=== PATIENT | female | born 1945 | race Caucasian/White ===

== ENCOUNTER 2021-08-04 16:07 | Outpatient (CLI) | payer MEDICARE, SELFPAY ==
--- NOTE | ~2021-08-04 | MM_ITS ---
EXAMINATION: MM screening viola BI w daniella HISTORY: Screening TECHNIQUE: Craniocaudal and mediolateral oblique 3-D tomosynthesis images were obtained and synthetic 2-D images were generated. CAD analysis was submitted and interpreted. COMPARISON: Comparison to multiple prior studies sequentially, with oldest reviewed study dated . BREAST PARENCHYMAL COMPOSITION: There are scattered areas of fibroglandular density. FINDINGS: There is developing cluster of indeterminate calcifications in the upper outer quadrant of the right breast, middle third. There is a possible new area of architectural distortion in the outer aspect of the left breast with associated punctate calcifications which are new. IMPRESSION: 1. New area of architectural distortion upper outer quadrant of the left breast with associated calci fications. Developing clustered indeterminate right breast calcifications. 2. Additional mammographic views and possible breast ultrasound are recommended. BI-RADS Category 0: Incomplete: Needs additional imaging evaluation. Reviewed, dictated and finalized at location A. IMPRESSION: 1. New area of architectural distortion upper outer quadrant of the left breast with associated calcifications. Developing clustered indeterminate right breas t calcifications. 2. Additional mammographic views and possible breast ultrasound are recommended . BI-RADS Category 0: Incomplete: Needs additional imaging evaluation.
== END 2021-08-04 16:08 | disposition home or self-care (01) ==
LOC: ANHIMG 16:09
PROVIDERS: PCP Internal Medicine; Visit Provider Internal Medicine
DX: Z12.31 Encounter for screening mammogram for malignant neoplasm of breast (principal); R92.8 Other abnormal and inconclusive findings on diagnostic imaging of breast
CPT/HCPCS: 77063; 77067

== ENCOUNTER 2021-08-22 12:45 | Outpatient (CLI) | payer MEDICARE, SELFPAY ==
--- NOTE | ~2021-08-22 | MMUS_ITS ---
EXAMINATION: MM diagnostic mammo BI, US breast LT limited HISTORY: Possible new architectural distortion in upper outer left breast with associated calcificati ons, developing clustered indeterminate right breast calcifications on 08/04/2021 screening mammogram TECHNIQUE: Additional ML 3-D tomosynthesis images of both breasts were performed and synthetic 2-D im ages were generated. Bilateral magnification views. CAD analysis was submitted and interpreted. High resolution upper outer and lower outer left breast ultrasound was performed. COMPARISON: 08/04/2021 bilateral digital screening mammogram FINDINGS: MAMMOGRAPHIC FINDINGS: There are multiple bilateral benign calcifications bilaterally. On the left in the anterior upper outer breast not far from midline there is suggestion of architectu ral distortion and some subtle mildly pleomorphic microcalcifications. ULTRASOUND: No suspicious mass or shadowing is detected in the upper outer or lower outer left breast. IMPRESSION: 1. Suspicious architectural distortion and associated mildly pleomorphic microcalcifications in the a nterior aspect of the upper outer left breast not far from midline 2. Stereotactic biopsy is recommended BI-RADS category 4, suspicious findings. Dr. Thurman telephoned the report and stereotactic biopsy recommendation for left breast on 08/22/2021 a t [address] Wills. Reviewed, dictated and finalized at location A. IMPRESSION: 1. Suspicious architectural distortion and associated mildly pleomorphic microc alcifications in the anterior aspect of the upper outer left breast not far fro m midline 2. Stereotactic biopsy is recommended BI-RADS category 4, suspicious findings. Dr. Thurman telephoned the report and stereotactic biopsy recommendation for left breast on 08/22/2021 [address] Wills.
== END 2021-08-22 12:46 | disposition home or self-care (01) ==
LOC: ANHIMG 12:51
PROVIDERS: PCP Internal Medicine; Visit Provider Internal Medicine
DX: R92.8 Other abnormal and inconclusive findings on diagnostic imaging of breast (principal)
CPT/HCPCS: 76642; 77066

== ENCOUNTER 2021-08-25 10:01 | Outpatient (CLI) | payer MEDICARE, SELFPAY ==
--- NOTE | ~2021-08-25 | MM_ITS ---
EXAMINATION: MM stereotactic bx LT, MM post biopsy diagnostic LT, MM stereotactic specimen LT, Specim en Radiograph, Tissue Marker Clip Placement, Unilateral Mammogram DATE: 08/25/2021 12:10 (accession [id number]), 08/25/2021 12:11 (accession [id number]), 08/25 12:10 (accession [id number]) INDICATION: Abnormal mammogram: Suspicious architectural distortion associated mildly pleomorphic lesa rocalcifications in the anterior upper outer left breast. TECHNIQUE AND FINDINGS: The risks and potential benefits of the procedure were discussed with the patient and written informe d consent was obtained. Timeout procedure was performed. The patient was placed in the prone position on the dedicated stereotactic table with the left breast in lateral medial compression, and the area of interest was localized and targeted utilizing digital imaging with stereotaxis. After sterile preparation of the skin, 1% lidocaine was utilized for local anesthesia at the skin pun cture site and 1% lidocaine with epinephrine was utilized for deeper local anesthesia/is about the bi opsy site. A 9G [employer] vacuum assisted biopsy needle was advanced to the level of the calcification o f interest from a cephalad/caudal/medial/lateral approach utilizing stereotactic guidance and a total of 25 tissue core biopsies were obtained. A specimen radiograph demonstrates that the calcifications of interest are included within the tissue cores. A tissue marker clip was then placed at the biopsy site. A digital mammographic exposure co nfirmed the successful deployment of the biopsy marker. The needle was removed and hemostasis was ac hieved. A sterile bandage was applied. The patient tolerated the procedure well and there is no hanna dence of significant immediate complication. The patient was given verbal as well as written postpro cedural instructions prior to discharge from the department. Tissue cores were submitted to surgical pathology for histologic analysis. A 2-view left unilateral digital mammogram was obtained post procedure, demonstrating the tissue sarbjit er clip in expected position. IMPRESSION: 1. Successful stereotactic biopsy of left anterior upper outer quadrant microcalcifications, follow ed by tissue marker clip placement. Please refer to pathology report for histologic analysis. Reviewed, dictated and finalized at Location A. Reviewed, dictated and finalized at location A. IMPRESSION: 1. Successful stereotactic biopsy of left anterior upper outer quadrant micro calcifications, followed by tissue marker clip placement. Please refer to path ology report for histologic analysis. IMPRESSION: 1. Successful stereotactic biopsy of left anterior upper outer quadrant micro calcifications, followed by tissue marker clip placement. Please refer to path ology report for histologic analysis.
== END 2021-08-25 10:02 | disposition home or self-care (01) ==
PROVIDERS: PCP Internal Medicine; Visit Provider Internal Medicine
DX: D05.12 Intraductal carcinoma in situ of left breast (principal)
CPT/HCPCS: 19081; 77065; 88305; 88342; A4648

== ENCOUNTER 2021-09-05 08:26 | Outpatient (CLI) | payer MEDICARE, SELFPAY ==
--- NOTE | 2021-09-05 08:30 | ECG_ITS ---
Measurements Intervals [place] Rate: 69 P: 13 SC: 154 QRS: 0 QRSD: 82 T: 19 QT: 369 QTc: 396 Interpretive Statements SINUS RHYTHM BORDERLINE R WAVE PROGRESSION, ANTERIOR LEADS BORDERLINE ST ABNORMALITY- HIGH LATERAL LEADS BASELINE ARTIFACT- I, III, AVR, AVL, AVF BORDERLINE ECG Electronically Signed On 09-05-2021 9:31:55 CDT by Carlos Bonilla D.O.
== END 2021-09-05 08:27 | disposition home or self-care (01) ==
LOC: ANHSURGERY 08:31
PROVIDERS: PCP Internal Medicine; Visit Provider Surgery
DX: Z01.810 Encounter for preprocedural cardiovascular examination (principal); I10 Essential (primary) hypertension
CPT/HCPCS: 93005

== ENCOUNTER 2021-10-24 01:40 | Day surgery (SDC) | payer MEDICARE, SELFPAY ==
[2021-09-02 13:32] VITALS: BMI 37.3
[2021-10-18 15:23] VITALS: BMI 37.3
--- NOTE | 2021-10-18 15:38 | PC.NURSE ---
Report to the Outpatient Waiting Room, entrance under the green pavilion located off [facility], at time _1030 on date _10/24/21 . OR Time: ___1330 . NEEDLE LOC-1130 - You and your visitor will be asked a series of questions to screen for COVID 19 for your protection. - A mask is required within the hospital. - Only one visitor is allowed at this time. Patient visitors will be guided where to wait when not with patient. Preoperative COVID Testing Requirements: No COVID Test needed if: (proof is required; if not received patient will have Rapid Test prior to entry) - Patient has received COVID Vaccine at least 14 days prior to procedure date or - Patient has positive COVID test result within last 90 days of surgery date. COVID Test needed if above criteria is not met If not COVID vaccinated a COVID test must be conducted within 72 hours of surgery and patient is asked to isolate self from time of testing until procedure. You will go to the [employer] [facility] for your COVID testing. The [employer] [facility] site is located at the corner of [address] [facility]. You will only be called if COVID results are positive and your surgeon may reschedule your elective surgery date. Patients may have clear liquids (water, carbonated beverages, clear teas, apple juice) until 3 hours prior to surgery with a maximum of 20 ounces. - No food from midnight until time of surgery - Infants may have breast milk until 4 hours before surgery, formula 6 hours prior to surgery. - Children will be allowed to drink immediately following surgery. If applicable, please bring a bottle or sippy cup to assist with drinking. Juice, water, soda, and popsicles are readily available. For infants on formula, please bring formula the day of surgery. Pacifiers are allowed. Take the following medications with a SIP of water the morning of surgery: _ALPRAZOLAM PRN, CARVEDILOL, LEVOTHYROXINE Medications to discontinue per physician STATES ONCOLOGIST INSTR PT TO HOLD ANASTROZOLE A FEW DAYS PRE-OP Date to take last dose Please no make-up, nail kittitian, hairspray, perfume, deodorant, or body powder the day of surgery. No jewelry (including any body piercings) or valuables the day of surgery, leave them at home. Please take a shower or bath the night before, or the morning of, surgery with an antibacterial soap. Wear comfortable, loose fitting clothing. Children are encouraged to wear pajamas. HIBICLENS SHOWER AMM OF SURGERY - Jewelry must be removed prior to entering the operating room. Rings and piercings that are not removed may be cut off. - The hospital will not accept responsibility for valuables. - Please leave all valuables, including medications, at home the day of surgery. If you are going home after surgery, a licensed pizza driver must drive you home. - NO public transportation without another adult. - We recommend that an adult stay with you for 24 hours following discharge. - We also recommend that you do not drive, make important decision, drink alcoholic beverages, or take any drugs that were not prescribed by your health care provider for at least 24 hours after your discharge time. For Pediatric surgeries, we recommend two adults accompany the child home (only one inside the building at this time). Follow any additional instructions given to you from your surgeon. Telephone instructions given to __PATIENT and asked if any additional questions and then verbalized understanding. Patient advised to call surgeon office or pre surgery nurse liaison [phone] if any additional questions.
[2021-10-24] VITALS (8 sets, daily range): BP systolic 105–152; BP diastolic 61–79; PULSE 56–72; RESP 12–16; TEMP 36.3; O2SAT 94–100
--- NOTE | ~2021-10-24 | MM_ITS ---
EXAMINATION: MM needle loc LT, MM surgical specimen LT DATE: 10/24/2021 12:49 (accession [id number]), 10/24/2021 14:31 (accession [id number]) INDICATION: Ductal carcinoma in situ of the left breast TECHNIQUE: The procedure for a mammography-guided needle localization was discussed with the patient. Risks and benefits were detailed including risks of bleeding and infection. The patient verbalized u nderstanding and agreed to proceed. A time out was performed to verify the patient's name, date of , and site of procedure. The bola ent was placed in mediolateral compression, and the skin overlying the outer left breast was prepare d in usual fashion. The skin and subcutaneous soft tissues were infiltrated with 1% lidocaine for loc al anesthesia. Utilizing mammography guidance, a needle was advanced into the left breast. Two confir matory films were obtained. The patient tolerated procedure without immediate complication. A specimen radiograph was performed. FINDINGS: Two view confirmatory films of the left breast demonstrate a needle with tip adjacent to th e biopsy marker in the upper outer quadrant of the breast. The wire and biopsy marker are contained w ithin the surgical specimen. IMPRESSION: 1. Successful mammography-guided left breast breast needle localization. Reviewed, dictated and finalized at location A. RESIDENTIAL IMPRESSION: 1. Successful mammography-guided left breast breast needle localization.
--- NOTE | ~2021-10-24 | NM_ITS ---
EXAMINATION: NM sentinel node inject only INDICATION: Left breast cancer TECHNIQUE: 0.968 mCi Tc 99m Lymphoseek were injected in 4 aliquots in the upper outer quadrant of the breast near the areola. No images were obtained. IMPRESSION: 1. Status post left breast sentinel lymph node radiopharmaceutical injection. Please refer to procedu re note for full details. Reviewed, dictated and finalized at location A. 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 Status post left breast sentinel lymph node radiopharmaceutical injection. P lease refer to procedure note for full details.
--- NOTE | 2021-10-24 10:59 | WPDANESEPPF ---
Anes - Initial Pre Proc Eval Procedure: Operation Date: 10/24/21 13:30 Proposed Procedures p Left Breast Lumpectomy with Ultrasound and/or Mammogram Guided Needle Localization, - Dino Avila DO s Left Breast [place] Lymph Node Biopsy - Dino Avila DO Date/Time: 10/24/21 10:59 Surgeon: Dino Avila DO Pre Op Diagnosis: left breast dcis Patient Data Age: 76 Gender: F Height: 1.68 m Weight: 105 kg Allergies Allergy/AdvReac Type Severity Reaction Status Date / Time No Known Allergies Allergy Verified 10/24/21 10:59 Home Medications Medication Instructions Recorded Confirmed Type levothyroxine 125 mcg PO QAM 09/02/21 10/24/21 History alprazolam 0.25 mg tablet 0.25 mg PO BID PRN #30 tablet 09/08/21 10/24/21 Rx carvedilol 25 mg tablet 25 mg PO BID #180 tablet 10/14/21 10/24/21 Rx felodipine 5 mg tablet,extended 5 mg PO HS #90 tablet 10/14/21 10/24/21 Rx release 24 hr lisinopril 40 mg tablet 40 mg PO QAM #90 tablet 10/14/21 10/24/21 Rx anastrozole 1 mg PO DAILY 10/18/21 10/24/21 History Patient hx anesthesia problems: none Family hx anesthesia problems: none Results Review: All pre-operative results and documents have been reviewed as part of the pre-operative evaluation. FORMERLY [facility], [facility]1983 Past Medical History Medical History (Updated 10/24/21 @ 10:59 by Enrique Sims MD) Anxiety BMI 37.0-37.9, adult Ductal carcinoma in situ (DCIS) of left breast Essential (primary) hypertension Hx of thyroid cancer Hyperlipidemia Hypothyroidism Surgical History Surgical History History of breast biopsy left breast bx 19 years ago, right breast bx x2 10 years ago. History of D&C History of hysterectomy History of thyroidectomy History of tonsillectomy Family History Family History Mother , age 77 Non-Hodgkin lymphoma Father , age 64 Pancreatic cancer Grandparent Breast cancer Social History Social History (Reviewed 09/06/21 @ 08:22 by YONI Etienne Smoking status: Never smoker Second hand tobacco smoke exposure: No Alcohol intake: current Drinks per week: 28 Alcohol use details: Wine Substance use: never Living arrangements: alone Spiritual care concerns: No Anes - Eval Final PreProcedure Day of Procedure 10/24/21 10:59 Patient weight: obese Heart: regular rate and rhythm Lungs: clear to auscultation and normal air movement Airway: Mallampati scale class II Neurological: alert and oriented Last oral intake: >/= 8 hours ASA classification: III Emergent: no Anesthetic plan: proceed Anesthesia type and monitoring: general LMA Results Review: All pre-operative results and documents have been reviewed as part of the pre-operative evaluation. Informed Consent: The patient's anesthetic plan and its attendant risks and benefits were discussed with the patient/family/POA. Questions were solicited and answers provided to the satisfaction of the patient/family/POA.
[2021-10-24] MEDS: ACETAMINOPHEN 500 MG TABLET 1000 MG PO (11:18)
[2021-10-24] MEDS: KETOROLAC 15 MG/ML VIAL (*BKC) IV PUSH (11:19)
[2021-10-24] MEDS: LACTATED RINGERS 1,000 ML 30 ML IV CONT (11:20)
--- NOTE | 2021-10-24 13:13 | PM.IMHP ---
H&P: HPI History of Present Illness Date/Time: 10/24/21 13:13 Chief Complaint: Left breast DCIS Narrative: This is a 76-year-old woman who presents for lumpectomy with sentinel lymph node biopsy for left breast DCIS. She reports no changes since last seen in the office. Review of Systems Review of Systems: All systems reviewed & are unremarkable except as noted in HPI and below Constitutional: Constitutional: Denies chills, Denies fever(s), Denies headache(s) and Denies weight loss Eyes: Eyes: Denies change in vision ENT: Denies dizziness, Denies headache(s), Denies neck mass and Denies throat swelling Cardiovascular: Cardiovascular: Denies chest pain, Denies lightheadedness and Denies dyspnea Respiratory: Respiratory: Denies cough, Denies dyspnea and Denies wheezing Gastrointestinal: Gastrointestinal: Denies abdominal pain, Denies change in bowel habits, Denies nausea and Denies vomiting Genitourinary: Genitourinary: Denies hematuria and Denies dysuria Musculoskeletal: Musculoskeletal: Reports as per HPI Integumentary/Breasts: Skin/Breast: Reports as per HPI Neurologic: Denies dizziness and Denies headache(s) Allergic/Immunologic: Allergic/Immunologic: Denies throat swelling and Denies wheezing PMFSH Past Medical History Medical History (Updated 10/24/21 @ 10:59 by Enrique Sims MD) Anxiety BMI 37.0-37.9, adult Ductal carcinoma in situ (DCIS) of left breast Essential (primary) hypertension Hx of thyroid cancer Hyperlipidemia Hypothyroidism Surgical History Surgical History History of breast biopsy left breast bx 19 years ago, right breast bx x2 10 years ago. History of D&C History of hysterectomy History of thyroidectomy History of tonsillectomy Family History Family History Mother , age 77 Non-Hodgkin lymphoma Father , age 64 Pancreatic cancer Grandparent Breast cancer Social History Social History Smoking status: Never smoker Second hand tobacco smoke exposure: No Alcohol intake: current Drinks per week: 28 Alcohol use details: Wine Substance use: never Living arrangements: alone Spiritual care concerns: No Meds Home Medications and Allergies Home Medications Medication Instructions Recorded Confirmed Type levothyroxine 125 mcg PO QAM 09/02/21 10/24/21 History alprazolam 0.25 mg tablet 0.25 mg PO BID PRN #30 tablet 09/08/21 10/24/21 Rx carvedilol 25 mg tablet 25 mg PO BID #180 tablet 10/14/21 10/24/21 Rx felodipine 5 mg tablet,extended 5 mg PO HS #90 tablet 10/14/21 10/24/21 Rx release 24 hr lisinopril 40 mg tablet 40 mg PO QAM #90 tablet 10/14/21 10/24/21 Rx anastrozole 1 mg PO DAILY 10/18/21 10/24/21 History Allergies Allergy/AdvReac Type Severity Reaction Status Date / Time No Known Allergies Allergy Verified 10/24/21 10:59 Vital Signs Vital Signs - 24 hr 10/24/21 10:40 Temperature 36.3 C L Pulse Rate 72 Respiratory Rate 16 Blood Pressure 148/79 H Pulse Oximetry 100 Exam Const: General: no acute distress and alert Orientation/consciousness: patient oriented x3 HENMT: Head: normocephalic and atraumatic Ears: hearing grossly normal bilaterally General nose exam: Normal nares present Mouth: Yes Normal oral and palatal mucosa present Eyes: Periorbital: periorbital findings normal Sclera: sclerae normal EOM: EOMs intact bilaterally Neck: Neck: normal visual inspection, no lymphadenopathy and trachea midline Chest: Chest palpation & inspection: normal inspection of the chest Resp: Effort & Inspection: normal respiratory effort Auscultation: clear to auscultation bilaterally Cardio: Jugular venous distension: no JVD Rate: regular rate Rhythm: regular rhythm Heart sounds: S1 normal heart sound present and S2 normal heart sound pre
--- NOTE | 2021-10-24 13:15 | WPDHPUPDATE1 ---
History and Physical Update Update Date/Time: 10/24/21 13:15 History and Physical has been reviewed, including an updated exam of the patient. There are NO changes in the patient's condition. Risks, benefits, and alternatives have been discussed and questions answered. Patient agrees to proceed with procedure.
[2021-10-24] MEDS: ceFAZolin 2 GM/D5W 50 ML 2 GM/50 ML BAG IVPB (13:39)
[2021-10-24] MEDS: ISOSULFAN BLUE 1% INJ 5 ML VIAL SUB-Q (13:49)
--- NOTE | 2021-10-24 15:03 | W.PM.PROC2 ---
Procedure Note - Detailed Date of Procedure 10/24/21 Pre-op Diagnosis Left breast DCIS Post-op Diagnosis same Procedure Performed Left breast needle localized lumpectomy with sentinel lymph node biopsy Surgeon Dino Avila, DO Anesthesia general and local (0.5% bupivacaine) Indications This is a 76-year-old woman who presented with an abnormal mammogram showing microcalcifications. A core needle biopsy showed evidence of DCIS with comedonecrosis. Discussions were made with the patient about treatment options and decision was made to proceed with left breast lumpectomy with needle localization and sentinel lymph node biopsy Findings Left breast lumpectomy was performed. Careful dissection around the wire was performed to obtain an adequate specimen for pathology. The specimen was sent to Radiology and they confirmed the abnormal microcalcifications were present in the specimen. [place] lymph node biopsy was then also performed. The sentinel lymph node identified showed an uptake of 2200 with the gamma probe. After carefully inspecting the axilla for any further lymph nodes, no other area within the axillary bed was showing a higher uptake then about 90-110. The single sentinel lymph node was sent to the lab for pathology. Description of Procedure Procedure as well as risks, benefits, and alternatives were discussed with the patient. Written consent was obtained and placed in chart prior to procedure. Patient was brought back to surgical suite. She was placed supine on operating table. Time-out was done to confirm patient and procedure. She was then intubated by the anesthesia department. Her nipple and areola skin was prepped with alcohol and 4 cc of isosulfan blue was injected at the 4 corners. Her breast and axillary region was then prepped and draped in sterile fashion using chlorhexidine prep. The wire was coming out of the skin in the upper outer quadrant of the left breast. 0.5% bupivacaine was infiltrated locally around this area and a 4 cm curvilinear incision was made using a 15 blade scalpel directly over this area. Electrocautery was used for hemostasis and for dissection around the wire and into the breast tissue. About a 3 cm x 3 cm section of the tissue was carefully dissected around the wire using electrocautery. Care was taken to stay far enough around the wire to get an adequate specimen. Once the specimen was completely removed it was marked with a short silk suture superiorly and long suture laterally. It was then sent to Radiology to confirm the specimen and then sent to the lab for pathology. The wound bed was then inspected hemostasis appeared adequate. The wound bed was then irrigated with sterile water. No other masses or abnormalities were noted. The deep tissue was then reapproximated using 3-0 Vicryl simple interrupted sutures and then the skin was approximated using 4-0 Monocryl running subcuticular suture. Exofin glue was then applied on top. I then moved my attention over to left axilla. The gamma probe was used to identify the area of increased uptake in the left axilla. 0.5% bupivacaine was infiltrated directly over this region and a 3 cm transverse incision was made directly over the area of increased uptake. Electrocautery was then used for hemostasis and for dissection through the clavipectoral fascia. A deep level 1 axillary node was identified with the blue dye and this was confirmed with increase uptake with the gamma probe. The lymph node was carefully dissected free with electrocautery and was excised completely with electrocautery. The gamma probe confirmed an increase uptake at 2200. This was sent as the initial sentinel lymph node. The wound bed was then inspected further with the gamma probe. No further increased uptake was noted above her around 90-110. I carefully inspected for any other blue lymph nodes with careful blunt dissection with a hemostat. No other sentinel lymph nodes were identi
== END 2021-10-24 17:15 | disposition home or self-care (01) ==
PROVIDERS: PCP Internal Medicine; Visit Provider Surgery
PROC: (CPT 19301; principal; 2021-10-24 13:30)
PROC: (CPT 19301; 2021-10-24 13:30)
DX: D05.12 Intraductal carcinoma in situ of left breast (principal); I10 Essential (primary) hypertension; E78.5 Hyperlipidemia, unspecified; E89.0 Postprocedural hypothyroidism; F41.9 Anxiety disorder, unspecified; Z85.850 Personal history of malignant neoplasm of thyroid; E66.9 Obesity, unspecified; Z68.36 Body mass index [BMI] 36.0-36.9, adult
CPT/HCPCS: 19301; 38525; 19281; 38792; 76098; 88307; 88342; A9270; A9520; C1769; J0690; J1100; J1885; J2250; J2405; J2704; J3010; J7120

== ENCOUNTER 2021-11-08 01:53 | Day surgery (SDC) | payer MEDICARE, SELFPAY ==
[2021-11-03 12:42] VITALS: BMI 36.6
--- NOTE | 2021-11-03 12:47 | PC.NURSE ---
Report to the Outpatient Waiting Room, entrance under the green pavilion located off [facility], at time _1200__ on date _11/08/21_. OR Time: _1400___. - You and your visitor will be asked a series of questions to screen for COVID 19 for your protection. - A mask is required within the hospital. - NO visitors is allowed at this time. Patient visitors will be guided where to wait when not with patient. Preoperative COVID Testing Requirements: No COVID Test needed if: (proof is required; if not received patient will have Rapid Test prior to entry) - Patient has received COVID Vaccine at least 14 days prior to procedure date or - Patient has positive COVID test result within last 90 days of surgery date. COVID Test needed if above criteria is not met If not COVID vaccinated a COVID test must be conducted within 72 hours of surgery and patient is asked to isolate self from time of testing until procedure. You will go to the [facility] for your COVID testing. The [facility] Testing site is located at the corner of [address] [facility]. You will only be called if COVID results are positive and your surgeon may reschedule your elective surgery date. Patients may have clear liquids (water, carbonated beverages, clear teas, apple juice) until 3 hours prior to surgery with a maximum of 20 ounces. - No food from midnight until time of surgery (1100 AM) - Infants may have breast milk until 4 hours before surgery, infant formula 6 hours prior to surgery. - Children will be allowed to drink immediately following surgery. If applicable, please bring a bottle or sippy cup to assist with drinking. Juice, water, soda, and popsicles are readily available. For infants on formula, please bring formula the day of surgery. Pacifiers are allowed. Take the following medications with a SIP of water the morning of surgery: _ALPRAZOLAM, CARVEDILOL, FELODIPINE, LEVOTHYROXINE___ Medications to discontinue per physician N/A Date to take last dose Please no make-up, nail german, hairspray, perfume, deodorant, or body powder the day of surgery. No jewelry (including any body piercings) or valuables the day of surgery, leave them at home. Please take a shower or bath the night before, or the morning of, surgery with an antibacterial soap. Wear comfortable, loose fitting clothing. Children are encouraged to wear pajamas. - Jewelry must be removed prior to entering the operating room. Rings and piercings that are not removed may be cut off. - The hospital will not accept responsibility for valuables. - Please leave all valuables, including medications, at home the day of surgery. If you are going home after surgery, a licensed dedicated truck driver must drive you home. - NO public transportation without another adult. - We recommend that an adult stay with you for 24 hours following discharge. - We also recommend that you do not drive, make important decision, drink alcoholic beverages, or take any drugs that were not prescribed by your health care provider for at least 24 hours after your discharge time. For Pediatric surgeries, we recommend two adults accompany the child home (only one inside the building at this time). Follow any additional instructions given to you from your surgeon. [facility] AM OF SURGERY Telephone instructions given to ____PT and asked if any additional questions and then verbalized understanding. Patient advised to call surgeon office or pre surgery nurse liaison [phone] if any additional questions.
[2021-11-08] VITALS (9 sets, daily range): BP systolic 124–145; BP diastolic 61–81; PULSE 65–72; RESP 14–18; TEMP 36.2–36.6; O2SAT 95–100
[2021-11-08] MEDS: KETOROLAC 15 MG/ML VIAL (*BKC) IV PUSH (09:09)
[2021-11-08] MEDS: ACETAMINOPHEN 500 MG TABLET 1000 MG PO (09:09)
--- NOTE | 2021-11-08 09:16 | P.PNAN_ITS ---
Anes - Initial Pre Proc Eval Procedure: Operation Date: 11/08/21 10:00 Proposed Procedures p Re-excision Of Left Breast Ductal Carcinoma In Situ - Dino Avila DO Date/Time: 11/08/21 09:16 Surgeon: Dino Avila DO Pre Op Diagnosis: ductal carcinoma in situ Patient Data Age: 76 Gender: F Height: 1.68 m Weight: 102.7 kg Last Vital Signs Temp 36.6 C 11/08/21 08:49 Pulse 72 11/08/21 08:49 Resp 16 11/08/21 08:49 BP 139/66 11/08/21 08:49 Pulse Ox 100 11/08/21 08:49 Allergies Allergy/AdvReac Type Severity Reaction Status Date / Time No Known Allergies Allergy Verified 11/08/21 08:34 Home Medications Medication Instructions Recorded Confirmed Type levothyroxine 125 mcg PO QAM 09/02/21 11/03/21 History alprazolam 0.25 mg tablet 0.25 mg PO BID PRN #30 tablet 09/08/21 11/03/21 Rx carvedilol 25 mg tablet 25 mg PO BID #180 tablet 10/14/21 11/03/21 Rx felodipine 5 mg tablet,extended 5 mg PO HS #90 tablet 10/14/21 11/03/21 Rx release 24 hr lisinopril 40 mg tablet 40 mg PO QAM #90 tablet 10/14/21 11/03/21 Rx anastrozole 1 mg PO DAILY 10/18/21 11/03/21 History Patient hx anesthesia problems: none Family hx anesthesia problems: none Results Review: All pre-operative results and documents have been reviewed as part of the pre-operative evaluation. [facility] Past Medical History Medical History Anxiety BMI 37.0-37.9, adult Ductal carcinoma in situ (DCIS) of left breast Essential (primary) hypertension Hx of thyroid cancer Hyperlipidemia Hypothyroidism Surgical History Surgical History History of breast biopsy left breast bx 19 years ago, right breast bx x2 10 years ago. History of D&C History of hysterectomy History of thyroidectomy History of tonsillectomy Family History Family History Mother , age 77 Non-Hodgkin lymphoma Father , age 64 Pancreatic cancer Grandparent Breast cancer Social History Social History Smoking status: Never smoker Second hand tobacco smoke exposure: No Alcohol intake: current Drinks per week: 28 Alcohol use details: Wine Substance use: never Substance use type: does not use Spiritual care concerns: No Anes - Eval Final PreProcedure Day of Procedure 11/08/21 09:16 Patient weight: obese Heart: regular rate and rhythm Lungs: clear to auscultation Airway: Mallampati scale class II Neurological: alert and oriented Last oral intake: >/= 8 hours ASA classification: III Emergent: no Anesthetic plan: proceed Anesthesia type and monitoring: general LMA and standard monitoring Results Review: All pre-operative results and documents have been reviewed as part of the pre-operative evaluation. Informed Consent: The patient's anesthetic plan and its attendant risks and benefits were discussed with the patient/family/POA. Questions were solicited and answers provided to the satisfaction of the patient/family/POA.
[2021-11-08] MEDS: LACTATED RINGERS 1,000 ML 30 ML IV CONT ×2 (09:20→11:09)
--- NOTE | 2021-11-08 09:37 | WPDHPUPDATE1 ---
History and Physical Update Update Date/Time: 11/08/21 09:37 History and Physical has been reviewed, including an updated exam of the patient. There are NO changes in the patient's condition. Risks, benefits, and alternatives have been discussed and questions answered. Patient agrees to proceed with procedure.
--- NOTE | 2021-11-08 09:37 | PM.IMHP ---
H&P: HPI History of Present Illness Date/Time: 11/08/21 09:37 Chief Complaint: Left breast DCIS Narrative: This is a 76-year-old woman who presents with a recent finding of left breast DCIS. She underwent left breast lumpectomy with sentinel lymph node biopsy and pathology came back as DCIS. The superior margin was positive, but the remaining margins were clear. She now presents for re-excision of the superior margin. Review of Systems Review of Systems: All systems reviewed & are unremarkable except as noted in HPI and below Constitutional: Constitutional: Denies chills, Denies fever(s), Denies headache(s) and Denies weight loss Eyes: Eyes: Denies change in vision ENT: Denies dizziness, Denies headache(s), Denies neck mass and Denies throat swelling Cardiovascular: Cardiovascular: Denies chest pain, Denies lightheadedness and Denies dyspnea Respiratory: Respiratory: Denies cough, Denies dyspnea and Denies wheezing Gastrointestinal: Gastrointestinal: Denies abdominal pain, Denies change in bowel habits, Denies nausea and Denies vomiting Genitourinary: Genitourinary: Denies hematuria and Denies dysuria Musculoskeletal: Musculoskeletal: Reports as per HPI Integumentary/Breasts: Skin/Breast: Reports as per HPI Neurologic: Denies dizziness and Denies headache(s) Allergic/Immunologic: Allergic/Immunologic: Denies throat swelling and Denies wheezing PMFSH Past Medical History Medical History Anxiety BMI 37.0-37.9, adult Ductal carcinoma in situ (DCIS) of left breast Essential (primary) hypertension Hx of thyroid cancer Hyperlipidemia Hypothyroidism Surgical History Surgical History History of breast biopsy left breast bx 19 years ago, right breast bx x2 10 years ago. History of D&C History of hysterectomy History of thyroidectomy History of tonsillectomy Family History Family History Mother , age 77 Non-Hodgkin lymphoma Father , age 64 Pancreatic cancer Grandparent Breast cancer Social History Social History Smoking status: Never smoker Second hand tobacco smoke exposure: No Alcohol intake: current Drinks per week: 28 Alcohol use details: Wine Substance use: never Substance use type: does not use Spiritual care concerns: No Meds Home Medications and Allergies Home Medications Medication Instructions Recorded Confirmed Type levothyroxine 125 mcg PO QAM 09/02/21 11/03/21 History alprazolam 0.25 mg tablet 0.25 mg PO BID PRN #30 tablet 09/08/21 11/03/21 Rx carvedilol 25 mg tablet 25 mg PO BID #180 tablet 10/14/21 11/03/21 Rx felodipine 5 mg tablet,extended 5 mg PO HS #90 tablet 10/14/21 11/03/21 Rx release 24 hr lisinopril 40 mg tablet 40 mg PO QAM #90 tablet 10/14/21 11/03/21 Rx anastrozole 1 mg PO DAILY 10/18/21 11/03/21 History Allergies Allergy/AdvReac Type Severity Reaction Status Date / Time No Known Allergies Allergy Verified 11/08/21 08:34 Vital Signs Vital Signs - 24 hr 11/08/21 08:49 Temperature 36.6 C Pulse Rate 72 Respiratory Rate 16 Blood Pressure 139/66 Pulse Oximetry 100 Exam Const: General: no acute distress and alert Orientation/consciousness: patient oriented x3 HENMT: Head: normocephalic and atraumatic Ears: hearing grossly normal bilaterally General nose exam: Normal nares present Mouth: Yes Normal oral and palatal mucosa present Eyes: Periorbital: periorbital findings normal Sclera: sclerae normal EOM: EOMs intact bilaterally Neck: Neck: normal visual inspection, no lymphadenopathy and trachea midline Chest: Other: Left breast incision healing well. No other masses or irregularities. Resp: Effort & Inspection: normal respiratory effort Auscultation: clear to auscult
[2021-11-08] MEDS: ceFAZolin 2 GM/D5W 50 ML 2 GM/50 ML BAG IVPB (10:00)
[2021-11-08] MEDS: BUPIVACAINE/EPINEPHRINE 0.25% 10 ML VIAL 30 ML INFILTRATE (10:22)
--- NOTE | 2021-11-08 10:58 | W.PM.PROC2 ---
Procedure Note - Detailed Date of Procedure 11/08/21 Pre-op Diagnosis Left Breast DCIS Post-op Diagnosis same Procedure Performed Re-excision lumpectomy of left breast DCIS Surgeon Dino Avila, DO Anesthesia general and local (0.25% bupivicaine with epi) Indications Is a 76-year-old woman who presents for re-excision left breast DCIS. She has a previous history of core needle biopsy for an abnormal mammogram which showed evidence of DCIS. She underwent needle localized left breast lumpectomy with sentinel lymph node biopsy. Pathology showed DCIS but the superior margin was positive. She now presents for re-excision of the superior margin. Findings Re-excision lumpectomy of the left breast DCIS was performed. The patient had a hematoma within the previous lumpectomy site. About 3-4 oz of old clotted blood was evacuated from this site. I then reexcised the superior margin using electrocautery. Care was taken to excise at least 5-10 mm of the entire superior margin. This was then marked with a short suture on the new superior margin and long suture lateral. The specimen was then sent to the lab for pathology. Care was taken to ensure adequate hemostasis prior to closure. Description of Procedure Procedure as well as risks, benefits, and alternatives were discussed with the patient. Written consent was obtained and placed in chart prior to procedure. Patient was brought back to surgical suite. She was placed supine on operating table. Time-out was done to confirm patient and procedure. Anesthesia was then provided by the anesthesia department. Her left breast area was prepped and draped in sterile fashion using chlorhexidine prep. The old incision was then opened using a 15 blade scalpel. Old clotted blood was then evacuated from the previous lumpectomy cavity. I then irrigated the cavity with sterile saline to ensure that all the clotted blood was removed and then carefully inspected for hemostasis which appeared adequate. I then began re-excise and the superior margin using electrocautery. Care was taken to develop a new superior margin of about 5-10 mm thickness throughout the entire superior area of the previous lumpectomy. This was excised all the way down to the previous posterior margin. The specimen was completely removed and then marked with a short suture at the new superior margin and long suture at the lateral margin. The specimen was then sent to the lab for pathology. Hemostasis was then achieved with electrocautery. The wound bed was then inspected carefully and then irrigated with sterile saline. One final inspection was made around the area and no other abnormalities were noted. The deep dermis was then reapproximated using 3-0 Vicryl inverted interrupted sutures and the skin was approximated using 4-0 Monocryl running subcuticular suture. Exofin glue was then applied on top. The patient was then awakened from anesthesia, extubated, and transferred to recovery. Estimated Blood Loss 5 Pathology yes ( Re-excision left breast DCIS - short suture new superior margin, long suture lateral) Complications No immediate complications Condition stable Disposition same day
== END 2021-11-08 13:20 | disposition home or self-care (01) ==
PROVIDERS: PCP Internal Medicine; Visit Provider Surgery
PROC: (CPT 19301; principal; 2021-11-08 10:00)
DX: D05.12 Intraductal carcinoma in situ of left breast (principal); I10 Essential (primary) hypertension; E78.5 Hyperlipidemia, unspecified; E89.0 Postprocedural hypothyroidism; Z85.850 Personal history of malignant neoplasm of thyroid; F41.9 Anxiety disorder, unspecified; E66.9 Obesity, unspecified; Z68.36 Body mass index [BMI] 36.0-36.9, adult
CPT/HCPCS: 19301; 88307; A9270; J0690; J1100; J1885; J2405; J2704; J3010; J7120

== ENCOUNTER 2021-12-09 13:09 | Outpatient (CLI) | payer MEDICARE, SELFPAY ==
--- NOTE | ~2021-12-09 | MMUS_ITS ---
EXAMINATION: MM diagnostic viola LT w daniella, US breast LT complete HISTORY: Malignant neoplasm upper outer quadrant of the left breast TECHNIQUE: Additional 3-D tomosynthesis images of the left breast were performed and synthetic 2-D im ages were generated. CAD analysis was submitted and interpreted. High resolution left complete breast ultrasound was performed. COMPARISON: Comparison to multiple prior studies sequentially, with oldest reviewed study dated 08/05. BREAST PARENCHYMAL COMPOSITION: The breasts are heterogenously dense, which may obscure small masses FINDINGS: MAMMOGRAPHIC FINDINGS: There is a large mass measuring 11.2 cm centered in the upper outer quadrant of the left breast which likely represents a benign postoperative seroma/hematoma. There are 2 focal clusters of calcificatio ns one in the upper outer quadrant of the left breast along the margin of the mass. A second cluster is in the lower inner quadrant of the left breast near a tissue biopsy marker. ULTRASOUND: Complete US of all 4 quadrants of the left breast and retroareolar region was reviewed. There is a la rge complex cystic mass at 11-1:00 with internal debris and septations measuring 10.1 x 9.2 x 3 cm. N o other masses are identified. IMPRESSION: 1. Large 10 cm left breast mass at 11-1:00 with internal cystic changes, debris and septations, likel y postoperative seroma/hematoma. There are 2 clusters of indeterminate calcifications in the left humble ast as described above which appear unchanged from the mammogram from wire localization procedure mick ed 10/24/2021. These findings are likely benign. 2. Recommend 6 month follow-up diagnostic bilateral mammogram and left breast ultrasound. BI-RADS category 3, probably benign findings. Reviewed, dictated and finalized at location A. [employer]IC[employer] IMPRESSION: 1. Large 10 cm left breast mass at 11-1:00 with internal cystic changes, debris and septations, likely postoperative seroma/hematoma. There are 2 clusters of indeterminate calcifications in the left breast as described above which appear unchanged from the mammogram from wire localization procedure dated 10/24/2021 . These findings are likely benign. 2. Recommend 6 month follow-up diagnostic bilateral mammogram and left breast u ltrasound. BI-RADS category 3, probably benign findings.
== END 2021-12-09 13:10 | disposition home or self-care (01) ==
LOC: ANHIMG 13:11
PROVIDERS: PCP Internal Medicine; Visit Provider Radiology Radiation Oncology
DX: C50.412 Malignant neoplasm of upper-outer quadrant of left female breast (principal)
CPT/HCPCS: 76641; 77061; 77065; G0279

== ENCOUNTER 2022-08-17 14:05 | Outpatient (CLI) | payer MEDICARE, SELFPAY ==
[2022-08-17 14:21] LABS: Basophils Percent Auto 0.4 % (0.2-1.2); Eosinophils Absolute Auto 0.1 K/mm3 (0-0.3); Hematocrit 38.9 % (37.0-47.0); Immature Granulocyte Absolute 0.03 K/mm3 (0.00-0.031); Immature Granulocyte Percent A 0.4 % (0-0.5); Lymphocytes Absolute Auto 1.27 K/mm3 (0.9-3.2); Lymphocytes Percent Auto 18.5 % (18.3-44.2); Mean Corpuscular HGB Conc 33.4 g/dl (32-36); Mean Corpuscular Hemoglobin 32.7 pg (26-34); Mean Platelet Volume 8.7 fl (7.4-10.4); Monocytes Absolute Auto 0.6 K/mm3 (0.1-0.6); Monocytes Percent Auto 8.6 % (2.6-8.5); Neutrophils Absolute Auto 4.8 K/mm3 (1.3-6.7); Neutrophils Percent Auto 70.1 % (45.5-73.1); Platelet Count Result 251 k/mm3 (150-375); Red Blood Count 3.97 M/mm3 (4.2-5.4); Red Cell Distribution Width 13.2 % (11.5-14.5); White Blood Count 6.9 K/mm3 (4.5-10.0)
[2022-08-17 14:24] LABS: Blood Urea Nitrogen 12 mg/dL (8-26); Carbon Dioxide 26 mmol/L (22-30); Chloride 101 mmol/L (98-109); Estimated Glomerular Filt Rate > 60; Glucose 130 mg/dL (70-105); Potassium 4.1 mmol/L (3.5-4.9); Sodium 138 mmol/L (138-146)
[2022-08-17 16:07] LABS: Alanine Aminotransferase 24 U/L (6-35); Albumin Level 4.5 g/dL (3.5-5.1); Alkaline Phosphatase 81 U/L (38-126); Anion Gap 10 mmol/L (8-16); Aspartate Amino Transferase 25 U/L (14-36); Blood Urea Nitrogen 13 mg/dL (7-17); Carbon Dioxide 25 mmol/L (22-30); Chloride 101 mmol/L (98-107); Estimated Glomerular Filt Rate > 60; Glucose 130 mg/dL (65-110); Potassium 4.1 mmol/L (3.4-5.0); Sodium 136 mmol/L (137-145)
== END 2022-08-17 14:06 | disposition home or self-care (01) ==
LOC: ANHLAB 14:06
PROVIDERS: PCP Internal Medicine; Visit Provider Internal Medicine Hematology & Oncology
DX: D05.12 Intraductal carcinoma in situ of left breast (principal)
CPT/HCPCS: 36415; 80047; 80053; 85025

== ENCOUNTER 2022-08-22 11:16 | Outpatient (CLI) | payer MEDICARE, SELFPAY ==
--- NOTE | ~2022-08-22 | MMUS_ITS ---
EXAMINATION: MM diagnostic viola BI w daniella, US breast LT limited HISTORY: Follow-up left breast mass TECHNIQUE: Additional 3-D tomosynthesis images of the breasts were performed and synthetic 2-D images were generated. CAD analysis was submitted and interpreted. High resolution Limited left breast ultr asound was performed. COMPARISON: Comparison to multiple prior studies sequentially, with oldest reviewed study dated 06/25. BREAST PARENCHYMAL COMPOSITION: Breast composed of scattered areas of fibroglandular density FINDINGS: MAMMOGRAPHIC FINDINGS: The right breast is stable without evidence for malignancy. There are benign right breast calcificati ons. Interval diminished size of left breast mass with circumscribed margins centered in the upper ce ntral aspect of the left breast. ULTRASOUND: Limited left breast ultrasound: Decreased size of large complex cystic mass measuring 8.2 x 6 x 7.3 c m. There is a peripheral soft tissue component dependently. This mass is more cystic and less complex than on prior examination, likely maturing hematoma/seroma. IMPRESSION: 1. Diminished size and complexity of complicated cystic mass in the left breast located at 12:00, mos t likely maturing hematoma/seroma. 2. Recommend 6 month follow-up left breast ultrasound BI-RADS category 3, probably benign findings. Reviewed, dictated and finalized at location A. IMPRESSION: 1. Diminished size and complexity of complicated cystic mass in the left breast located at 12:00, most likely maturing hematoma/seroma. 2. Recommend 6 month follow-up left breast ultrasound BI-RADS category 3, probably benign findings.
== END 2022-08-22 11:17 | disposition home or self-care (01) ==
PROVIDERS: PCP Internal Medicine; Visit Provider Internal Medicine Hematology & Oncology
DX: D05.12 Intraductal carcinoma in situ of left breast (principal)
CPT/HCPCS: 76642; 77062; 77066; G0279

== ENCOUNTER 2022-11-13 06:52 | Day surgery (SDC) | payer MEDICARE, SELFPAY ==
[2022-10-03 15:34] VITALS: BMI 38.4
[2022-10-31 10:08] VITALS: BMI 37.0
--- NOTE | 2022-11-10 08:25 | P.PNAN_ITS ---
Anes - Initial Pre Proc Eval Procedure: Operation Date: 11/13/22 07:30 Proposed Procedures p Screening Colonoscopy - Ab Chong MD Date/Time: 11/10/22 08:25 Surgeon: Ab Chong MD Pre Op Diagnosis: History of Polyps Patient Data Age: 77 Gender: F Height: 1.68 m Weight: 104 kg Allergies Allergy/AdvReac Type Severity Reaction Status Date / Time alprazolam AdvReac Intermediate Rash Verified 09/19/22 08:57 Home Medications Medication Instructions Recorded Confirmed Type anastrozole 1 mg tablet 1 mg PO DAILY 10/18/21 10/31/22 History felodipine 5 mg tablet,extended 5 mg PO HS #90 tabs 09/16/22 10/31/22 Rx release 24 hr carvedilol 25 mg tablet 25 mg PO BID #180 tabs 09/21/22 10/31/22 Rx lisinopril 40 mg tablet 40 mg PO QAM #90 tabs 09/21/22 10/31/22 Rx sodium,potassium,mag sulfates 17.5 See Rx Instructions PO .COMPLEX 10/03/22 Rx gram-3.13 gram-1.6 gram oral soln #354 mL (Suprep Bowel Prep Kit) levothyroxine 88 mcg tablet 88 mcg PO DAILY #90 tabs 11/10/22 Rx Patient hx anesthesia problems: none Family hx anesthesia problems: none Results Review: All pre-operative results and documents have been reviewed as part of the pre-operative evaluation. [facility] Past Medical History Medical History Anxiety BMI 37.0-37.9, adult Ductal carcinoma in situ (DCIS) of left breast Essential (primary) hypertension Hx of thyroid cancer Hyperlipidemia Hypothyroidism Surgical History Surgical History H/O lumpectomy re-excision of left breast DCIS 11/08/21 History of breast biopsy left breast bx 19 years ago, right breast bx x2 10 years ago. History of D&C History of hysterectomy History of thyroidectomy History of tonsillectomy Family History Family History Mother , age 77 Non-Hodgkin lymphoma Father , age 64 Pancreatic cancer Grandparent Breast cancer Social History Social History Smoking status: Never smoker Second hand tobacco smoke exposure: No Alcohol intake: current Drinks per week: 28 Alcohol use details: Wine Substance use: never Substance use type: does not use Living arrangements: with family Gender identity (if verbalized by the patient): Female Sexual Orientation (if Verbalized by the Patient): Straight or Heterosexual Spiritual care concerns: No Anes - Eval Final PreProcedure Day of Procedure 11/10/22 08:25 Patient weight: obese Heart: regular rate and rhythm Lungs: clear to auscultation Airway: Mallampati scale class II Neurological: alert and oriented Last oral intake: >/= 8 hours ASA classification: III Emergent: no Anesthetic plan: proceed Anesthesia type and monitoring: general GIVS and standard monitoring Results Review: All pre-operative results and documents have been reviewed as part of the pre- operative evaluation. Informed Consent: The patient's anesthetic plan and its attendant risks and benefits were di scussed with the patient/family/POA. Questions were solicited and answers provided to the satisfaction of the patient/family/POA.
[2022-11-13 06:25] VITALS: BP 158/77; PULSE 82; RESP 20; TEMP 37.2; O2SAT 99
--- NOTE | 2022-11-13 07:18 | PM.HPGS ---
History of Present Illness History of Present Illness Consent: Risks, benefits, and alternatives have been discussed and questions answered. Patient agrees to proceed with procedure. Chief complaint: History of Polyps Narrative: Marita Woodson is a 77 year old female Presents for screening colonoscopy. Patient has a history of adenomatous colon polyp removed from the colon in 2016. Patient's current weight appetite and bowel movements are normal. Patient denies abdominal pain. She has had no bleeding. Family history is noncontributory. Review of Systems Review of Systems: Review of systems noncontributory. [facility] Past Medical History Medical History Anxiety BMI 37.0-37.9, adult Ductal carcinoma in situ (DCIS) of left breast Essential (primary) hypertension Hx of thyroid cancer Hyperlipidemia Hypothyroidism Surgical History Surgical History H/O lumpectomy re-excision of left breast DCIS 11/08/21 History of breast biopsy left breast bx 19 years ago, right breast bx x2 10 years ago. History of D&C History of hysterectomy History of thyroidectomy History of tonsillectomy Family History Family History Mother , age 77 Non-Hodgkin lymphoma Father , age 64 Pancreatic cancer Grandparent Breast cancer Social History Social History Smoking status: Never smoker Second hand tobacco smoke exposure: No Alcohol intake: current Drinks per week: 28 Alcohol use details: Wine Substance use: never Substance use type: does not use Living arrangements: with family Gender identity (if verbalized by the patient): Female Sexual Orientation (if Verbalized by the Patient): Straight or Heterosexual Spiritual care concerns: No Meds Home Medications and Allergies Home Medications Medication Instructions Recorded Confirmed Type anastrozole 1 mg tablet 1 mg PO DAILY 10/18/21 10/31/22 History felodipine 5 mg tablet,extended 5 mg PO HS #90 tabs 09/16/22 10/31/22 Rx release 24 hr carvedilol 25 mg tablet 25 mg PO BID #180 tabs 09/21/22 10/31/22 Rx lisinopril 40 mg tablet 40 mg PO QAM #90 tabs 09/21/22 10/31/22 Rx sodium,potassium,mag sulfates 17.5 See Rx Instructions PO .COMPLEX 10/03/22 Rx gram-3.13 gram-1.6 gram oral soln #354 mL (Suprep Bowel Prep Kit) levothyroxine 88 mcg tablet 88 mcg PO DAILY #90 tabs 11/10/22 Rx Allergies Allergy/AdvReac Type Severity Reaction Status Date / Time alprazolam AdvReac Intermediate Rash Verified 09/19/22 08:57 Exam Narrative: Physical exam reveals patient to be alert. Vital signs stable. HEENT exam is unremarkable. Patient is anicteric. Lungs are clear to auscultation and percussion. Heart is without murmur or extra sounds. Abdomen bowel sounds present soft nontender with no organomegaly. Digital external rectal exam is normal. Assessment and Plan Assessment and plan (1) History of colon polyps: Code(s): Z86.010 - Personal history of colonic polyps Status: Acute Assessment and Plan: Patient has a history of colon polyps. Plan for surveillance colonoscopy now, consider this at 5 year intervals in the future.
[2022-11-13] MEDS: LACTATED RINGERS 1,000 ML 150 ML IV CONT (07:27)
[2022-11-13 07:48] VITALS: BP 128/68; PULSE 69; RESP 18; O2SAT 98
[2022-11-13 07:58] VITALS: BP 130/77; PULSE 64; RESP 20; O2SAT 99
[2022-11-13 08:08] VITALS: BP 134/66; PULSE 70; RESP 20; O2SAT 99
--- NOTE | 2022-11-13 12:17 | WPDANESPN ---
Anes - Prog Note Post-Op Date/Time: 11/13/22 12:17 Cardiovascular status: normal Respiratory status: normal Airway patency: baseline Mental status: baseline Post-Op hydration status: normal Vital Signs: Last Vital Signs Temp 37.2 C 11/13/22 06:25 Pulse 70 11/13/22 08:08 Resp 20 11/13/22 08:08 BP 134/66 11/13/22 08:08 Pulse Ox 99 11/13/22 08:08 O2 Del Method Room Air 11/13/22 08:08 Pain Score (VAS): 0 I/O: Intake & Output 11/12/22 11/13/22 11/13/22 23:59 07:59 15:59 Intake Total 300 150 Balance 300 150 Post-procedural complaints: none Patient Feedback: Patient satisfied with anesthetic care. Other Findings: Patient vital signs back to baseline. Patient denies nausea and vomiting. Patient's pain under control. Patient OK for discharge.
== END 2022-11-13 08:28 | disposition home or self-care (01) ==
PROVIDERS: PCP Internal Medicine; Visit Provider Internal Medicine Gastroenterology
PROC: 0DJD8ZZ Inspection of Lower Intestinal Tract, Via Natural or Artificial Opening Endoscopic (ICD-10-PCS; CPT 45378; principal; 2022-11-13 07:30)
DX: Z86.010 Personal history of colon polyps (principal)
CPT/HCPCS: 45378

== ENCOUNTER 2023-08-31 14:10 | Outpatient (CLI) | payer MEDICARE, SELFPAY ==
--- NOTE | ~2023-08-31 | US_ITS ---
EXAMINATION: US soft tissue head and neck DATE: 08/31/2023 15:33 INDICATION: Papillary thyroid cancer. TECHNIQUE: Multiple ultrasound images of the thyroid were obtained. COMPARISON: Ultrasound 03/13/2014 FINDINGS: There are changes of thyroidectomy. There are no pathologically enlarged lymph nodes. There is a 1.4 x 0.3 x 1.0 cm mass that is isoechoic to normal thyroid in the area of the thyroid isthmus. IMPRESSION: 1. Small mass in the expected area of the thyroid isthmus that may be recurrent or residual thyroid t issue status post thyroidectomy. Reviewed, dictated and finalized at location E. IMPRESSION: 1. Small mass in the expected area of the thyroid isthmus that may be recurrent or residual thyroid tissue status post thyroidectomy.
== END 2023-08-31 14:11 | disposition home or self-care (01) ==
PROVIDERS: PCP Internal Medicine; Visit Provider Internal Medicine
DX: E03.9 Hypothyroidism, unspecified (principal); C73 Malignant neoplasm of thyroid gland
CPT/HCPCS: 76536

== ENCOUNTER 2023-09-13 14:16 | Outpatient (CLI) | payer MEDICARE, SELFPAY ==
[2023-09-13 14:35] LABS: Basophils Percent Auto 0.6 % (0.2-1.2); Eosinophils Absolute Auto 0.1 K/mm3 (0-0.3); Eosinophils Percent Auto 1.9 % (0-4.4); Hematocrit 39.4 % (37.0-47.0); Hemoglobin 13.3 g/dL (12.0-15.0); Immature Granulocyte Absolute 0.03 K/mm3 (0.00-0.031); Immature Granulocyte Percent A 0.4 % (0-0.5); Lymphocytes Absolute Auto 1.27 K/mm3 (0.9-3.2); Lymphocytes Percent Auto 18.1 % (18.3-44.2); Mean Corpuscular HGB Conc 33.8 g/dl (32-36); Mean Corpuscular Hemoglobin 31.7 pg (26-34); Mean Corpuscular Volume 93.8 fl (80-100); Mean Platelet Volume 8.9 fl (7.4-10.4); Monocytes Absolute Auto 0.7 K/mm3 (0.1-0.6); Monocytes Percent Auto 10.6 % (2.6-8.5); Neutrophils Absolute Auto 4.8 K/mm3 (1.3-6.7); Neutrophils Percent Auto 68.4 % (45.5-73.1); Platelet Count Result 230 k/mm3 (150-375); Red Cell Distribution Width 12.8 % (11.5-14.5)
[2023-09-13 14:39] LABS: Blood Urea Nitrogen 10 mg/dL (8-26); Carbon Dioxide 23 mmol/L (22-30); Chloride 101 mmol/L (98-109); Estimated Glomerular Filt Rate > 60; Glucose 100 mg/dL (70-105); Ionized Calcium (POC) 1.21 mmol/L (1.11-1.31); Potassium 4.5 mmol/L (3.5-4.9); Sodium 133 mmol/L (138-146)
[2023-09-13 16:38] LABS: Alanine Aminotransferase 25 U/L (6-35); Albumin Level 4.4 g/dL (3.5-5.1); Alkaline Phosphatase 110 U/L (38-126); Anion Gap 10 mmol/L (8-16); Aspartate Amino Transferase 25 U/L (14-36); Bilirubin,Total 0.7 mg/dL (0.2-1.3); Blood Urea Nitrogen 11 mg/dL (7-17); Calcium 10.1 mg/dL (8.4-10.2); Carbon Dioxide 23 mmol/L (22-30); Chloride 100 mmol/L (98-107); Estimated Glomerular Filt Rate > 60; Glucose 104 mg/dL (65-110); Potassium 4.5 mmol/L (3.4-5.0); Sodium 133 mmol/L (137-145)
[2023-09-13 16:52] LABS: Vitamin D 25 Hydroxy 64.2 ng/mL
== END 2023-09-13 14:17 | disposition home or self-care (01) ==
PROVIDERS: PCP Internal Medicine; Visit Provider Internal Medicine Hematology & Oncology
DX: D05.12 Intraductal carcinoma in situ of left breast (principal); E55.9 Vitamin D deficiency, unspecified
CPT/HCPCS: 36415; 80047; 80053; 82306; 85025

== ENCOUNTER 2023-10-18 12:34 | Outpatient (CLI) | payer MEDICARE, SELFPAY ==
--- NOTE | ~2023-10-18 | US_ITS ---
EXAMINATION: US thyroid DATE: 10/18/2023 13:20 INDICATION: Thyroid mass. TECHNIQUE: Multiple ultrasound images of the thyroid were obtained. COMPARISON: Ultrasound 08/31/2023 FINDINGS: There are changes of thyroidectomy. There is a 9 x 3 mm mass in the expected area of the thyroid isth mus that is isoechoic to normal thyroid. IMPRESSION: 1. Small mass in the expected area of the thyroid isthmus, most likely recurrent or residual normal t hyroid tissue status post thyroidectomy. The mass is too small to biopsy. The biopsy was canceled. Reviewed, dictated and finalized at location A. CAR INSPECTOR IMPRESSION: 1. Small mass in the expected area of the thyroid isthmus, most likely recurren t or residual normal thyroid tissue status post thyroidectomy. The mass is too small to biopsy. The biopsy was canceled.
== END 2023-10-18 12:35 | disposition home or self-care (01) ==
PROVIDERS: PCP Internal Medicine; Visit Provider Internal Medicine
DX: C73 Malignant neoplasm of thyroid gland (principal)
CPT/HCPCS: 76536

== ENCOUNTER 2024-03-12 09:27 | Outpatient (CLI) | payer MEDICARE, SELFPAY ==
[2024-03-12 09:42] LABS: Basophils Percent Auto 0.5 % (0.2-1.2); Eosinophils Absolute Auto 0.1 K/mm3 (0-0.3); Hematocrit 38.1 % (37.0-47.0); Hemoglobin 12.9 g/dL (12.0-15.0); Immature Granulocyte Absolute 0.04 K/mm3 (0.00-0.031); Immature Granulocyte Percent A 0.7 % (0-0.5); Lymphocytes Absolute Auto 1.32 K/mm3 (0.9-3.2); Lymphocytes Percent Auto 21.5 % (18.3-44.2); Mean Corpuscular HGB Conc 33.9 g/dl (32-36); Mean Corpuscular Hemoglobin 31.6 pg (26-34); Mean Corpuscular Volume 93.4 fl (80-100); Mean Platelet Volume 8.7 fl (7.4-10.4); Monocytes Absolute Auto 0.7 K/mm3 (0.1-0.6); Monocytes Percent Auto 11.5 % (2.6-8.5); Neutrophils Absolute Auto 3.9 K/mm3 (1.3-6.7); Neutrophils Percent Auto 63.8 % (45.5-73.1); Platelet Count Result 234 k/mm3 (150-375); Red Blood Count 4.08 M/mm3 (4.2-5.4); Red Cell Distribution Width 12.7 % (11.5-14.5); White Blood Count 6.2 K/mm3 (4.5-10.0)
[2024-03-12 10:58] LABS: Alanine Aminotransferase 18 U/L (6-35); Albumin Level 4.5 g/dL (3.5-5.1); Alkaline Phosphatase 94 U/L (38-126); Anion Gap 8 mmol/L (4-12); Aspartate Amino Transferase 23 U/L (14-36); Bilirubin,Total 0.9 mg/dL (0.2-1.3); Blood Urea Nitrogen 13 mg/dL (7-17); Carbon Dioxide 22 mmol/L (22-30); Chloride 103 mmol/L (98-107); Estimated Glomerular Filt Rate > 60; Glucose 104 mg/dL (65-110); Potassium 4.6 mmol/L (3.4-5.0); Sodium 133 mmol/L (137-145)
[2024-03-12 11:15] LABS: Vitamin D 25 Hydroxy 57.3 ng/mL
== END 2024-03-12 09:28 | disposition home or self-care (01) ==
LOC: ANHLAB 09:30
PROVIDERS: PCP Internal Medicine; Visit Provider Internal Medicine Hematology & Oncology
DX: E55.9 Vitamin D deficiency, unspecified (principal)
CPT/HCPCS: 36415; 80053; 82306; 85025

== ENCOUNTER 2024-09-24 12:56 | Outpatient (CLI) | payer MEDICARE, SELFPAY ==
[2024-09-24 13:09] LABS: Basophils Absolute Auto 0.1 K/mm3 (0.0-0.1); Basophils Percent Auto 0.8 % (0.2-1.2); Eosinophils Absolute Auto 0.2 K/mm3 (0-0.3); Eosinophils Percent Auto 2.3 % (0-4.4); Hematocrit 38.8 % (37.0-47.0); Hemoglobin 12.8 g/dL (12.0-15.0); Immature Granulocyte Absolute 0.03 K/mm3 (0.00-0.031); Immature Granulocyte Percent A 0.5 % (0-0.5); Lymphocytes Absolute Auto 1.53 K/mm3 (0.9-3.2); Lymphocytes Percent Auto 23.8 % (18.3-44.2); Mean Corpuscular Hemoglobin 31.2 pg (26-34); Mean Corpuscular Volume 94.6 fl (80-100); Mean Platelet Volume 8.9 fl (7.4-10.4); Monocytes Absolute Auto 0.6 K/mm3 (0.1-0.6); Monocytes Percent Auto 9.5 % (2.6-8.5); Neutrophils Absolute Auto 4.1 K/mm3 (1.3-6.7); Neutrophils Percent Auto 63.1 % (45.5-73.1); Platelet Count Result 210 k/mm3 (150-375); Red Cell Distribution Width 12.9 % (11.5-14.5); White Blood Count 6.4 K/mm3 (4.5-10.0)
[2024-09-24 13:13] LABS: Blood Urea Nitrogen 13 mg/dL (8-26); Carbon Dioxide 24 mmol/L (22-30); Chloride 105 mmol/L (98-109); Estimated Glomerular Filt Rate > 60; Glucose 112 mg/dL (70-105); Ionized Calcium (POC) 1.27 mmol/L (1.11-1.31); Potassium 3.9 mmol/L (3.5-4.9); Sodium 139 mmol/L (138-146)
[2024-09-24 18:44] LABS: Potassium 4.2 mmol/L (3.4-5.0)
[2024-09-24 18:49] LABS: Alanine Aminotransferase 17 U/L (6-35); Albumin Level 4.3 g/dL (3.5-5.1); Alkaline Phosphatase 91 U/L (38-126); Anion Gap 7 mmol/L (4-12); Aspartate Amino Transferase 32 U/L (14-36); Bilirubin,Total 0.9 mg/dL (0.2-1.3); Blood Urea Nitrogen 14 mg/dL (7-17); Calcium 9.8 mg/dL (8.4-10.2); Carbon Dioxide 25 mmol/L (22-30); Chloride 105 mmol/L (98-107); Estimated Glomerular Filt Rate > 60; Glucose 111 mg/dL (65-110); Sodium 137 mmol/L (137-145)
== END 2024-09-24 12:57 | disposition home or self-care (01) ==
LOC: ANHLAB 12:57
PROVIDERS: PCP Internal Medicine; Visit Provider Internal Medicine Hematology & Oncology
DX: D05.12 Intraductal carcinoma in situ of left breast (principal)
CPT/HCPCS: 36415; 80047; 80053; 85025

== ENCOUNTER 2025-03-24 13:32 | Outpatient (CLI) | payer MEDICARE, SELFPAY ==
--- OUTSIDE RECORDS SUMMARY | 2025-03-24 13:37 | XMS_ITS | Continuity of Care Document ---
Author Organization [facility] Address [address] [place] [address] Phone Care Team Providers Care Court Operations Clerk Name Role Phone [facility] Unavailable Unavail able Fang Mar Unavailable Unavailable Procedures Procedure Date Frames Deluxe Progressive Lens, Polycarb Tint Photochromatic, Polycarb 0 Tax - Medical Eye Exam & Treatment Refraction Eye Exam & Treatment Refraction Advance Directives Directive Yes / No Effective Date File Name No Information Encounters Encounter Description Practice Location Reason(s) For Visit Diagnoses Date Provider Providers Copied on Encounter [facility], [address] [place] [address] [address], [place], [place], [id number], [place] tel:[phone] [facility] No Information 8-201 0 [facility] . [address] [facility], [facility] [address], [place], [id number], [place]. tel:[phone] Referring Provider: Sarah Wild, [address], [place], [address]. tel:[phone] sulting Provider: Fang Mar, [address] [place] [address], [address]. tel:[phone] [facility], [address], [place], [place], [id number], [place] tel:[phone] [facility] No Information Dec-0 8-200 9 [place]. [address] , [address], [place], [address], [place]. tel:[phone] [facility], [address], [place], [place], [id number], [place] tel:[phone] [facility] No Information Nov-0 2-200 7 [place]. [address] , [address], [place], [address], [place]. tel:[phone] Family History Family Member Type Diagnosis Age At Onset No Information Payers Payer name Insurance type Covered democrat ID Authoriza tion(s) No Information Social History Type Description Quantity Date Captured Comments Sex Female Smoking Status No Information Chief Complaint And Reason For Visit No Information Reason For Referral Reason For Referral No Information History Of Present Illness Encounter Date Complaint History Of Prese nt Illness No Information Functional Status Date Functional Assessmen t No Information Instructions Date Instruction Additional Infor mation No Information Assessments Type Assessment Date No Information Patient Care Teams Name Effective Dates (start - stop) Status Members No Information
--- OUTSIDE RECORDS SUMMARY | 2025-03-24 13:37 | XMS_ITS | Clinical Summary ---
[facility] Address [address] [facility] [place] [address] Care Team Providers Care Hydro Plant Technician Name Role Phone Enrrique Wills DO Primary Care Provider Allergies No known active allergies Medications carvediloL (COREG) 25 mg tablet 08/19/2021 Active felodipine (PLENDIL) 5 mg Extended Release 24 hour tablet 08/19/2021 Acti ve lisinopriL (PRINIVIL) 40 mg tablet 08/19/2021 Active ALPRAZolam (XANAX) 0.25 mg tablet 08/23/2021 Active levothyroxine 88 mcg tablet Take 88 mcg by mouth daily in the morning. Active folic acid (FOLVITE) 1 mg tablet Take 1 mg by mouth daily. 12/20/2022 Active cyanocobalamin (VITAMIN B-12) 100 mcg tablet Take 100 mcg by mouth daily. Active anastrozole (ARIMIDEX) 1 mg tablet take 1 tablet by mouth every day 90 Tablet 3 05/12/2024 Active amLODIPine (NORVASC) 5 mg tablet Take 5 mg by mouth daily. Active Active Problems Patient Care Coordination No te Formatting of this note migh t be different from the original. Primary Care: Enrrique Wills DO [place]: [place] [id number] [address] Other: Dr. 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 Family History Medical History Relation Name Comments Cancer Daughter 2 Cancer Father Pancreatic Cancer Father Cancer Mother non hodgkins ly mphoma Breast Cancer Paternal Grandfather Ovarian Cancer Neg Hx Relation Name Status Comments Daughter 1 Alive Daughter 2 Alive Father Maternal Grandmother Mother Paternal Grandfather Social History Tobacco Use Types Packs/Day Years Used Date Smoking Tobacco: Never Smokeless Tobacco: Never Tobacco Cessation:Counseling Given: Not Answered Alcohol Use Standard Drinks/Week Comments Yes 0 (1 standard drink = 0.6 oz pur e alcohol) Comments No Sex and Gender Information Value Date Recorded Sex Assigned at Not on file Legal Sex Female 9:45 AM CDT Gender Identity Not on file Sexual Orientation Not on file Last Filed Vital Signs Vital Sign Reading Time Taken Comments Blood Pressure 139/68 09/24/2024 1:17 PM SENIOR UI SOFTWARE ENGINEER Pulse 67 09/24/2024 1:17 PM SENIOR UI SOFTWARE ENGINEER Temperature 36.5 C (97.7 F) 09/24/2024 1:17 PM SENIOR UI SOFTWARE ENGINEER Respiratory Rate 16 09/24/2024 1:17 PM SENIOR UI SOFTWARE ENGINEER Oxygen Saturation 97% 09/24/2024 1:17 PM SENIOR UI SOFTWARE ENGINEER Inhaled Oxygen Concentration - - Weight 98.9 kg (218 lb) 09/24/2024 1:17 PM SENIOR UI SOFTWARE ENGINEER Height 167.6 cm (5' 6 ) 07/29/2024 10:23 AM CDT Body Mass Index 35.19 07/29/2024 10:23 AM CDT Plan of Treatment Upcoming Encounters Date Type Department Care Team (Late st Contact Info) Description 03/24/2025 2:15 PM CDT Office Visit [facility] Oncology and Hematology - [place] [address] [place] [address] Emanuel Pandya MD [address] [place] [address] 08/07/2025 10:[address] [facility] [address] [place] [address] [place] [address] [address] [id number] 08/07/2025 11:15 AM CDT Office Visit [facility] Breast Surgery [address] [facility] [address] [address] [place] [address] [address] [facility] [address] [place] [address] Health Maintenance Due Date Last Done Comments DTAP/TDAP/TD VACCINES (1 - Tdap) 1965 PNEUMOCOCCAL VACCINE 50+ YEARS (1 of 1 - PCV) 04/13/19 96 ZOSTER VACCINE (1 of 2) 1996 OSTEOPOROSIS SCREENING 2011 RSV VACCINE (60+ or ) (1 - 1-dose 75+ series) 2021 INFLUENZA VACCINE (#1) 2024 [facility] Care Teams Hydro Plant Technician Relationship Specialty Start Date End Date Enrrique Wills DO [address] [facility] [address] [place] [address] PCP - General Internal Medicine 09/05/21
--- OUTSIDE RECORDS SUMMARY | 2025-03-24 13:37 | XMS_ITS | Referral Summary ---
Author Organization [facility] ([place], [place]) Medical Office Building 2 Address [address] [place] [address] Care Team Providers Care Clothing Man Name Role Phone Jame Heard MD Unavailable [phone] Lyndsey Mendez MD Unavailable [phone] Enrrique Wills MD Primary Care Provider [phone] Allergies No known active allergies Medications amLODIPine (NORVASC) 5 mg tablet Take 1 tablet (5 mg total) by mouth daily 08/11/2023 Active anastrozole (ARIMIDEX) 1 mg tablet Take 1 tablet (1 mg total) by mouth daily 03/13/2023 Active carvediloL (COREG) 25 mg tablet 08/19/2021 Active cyanocobalamin (Vitamin B-12) 1,000 mcg sublingual tablet Take 1 tablet (1,000 mcg total) by mouth daily Active felodipine (PLENDIL) 5 mg 24 hr tablet 08/19/2021 Active folic acid (FOLVITE) 1 mg tablet Take 1 tablet (1,000 mcg total) by mouth daily Active levothyroxine (SYNTHROID) 137 mcg tablet Take 1 tablet (137 mcg total) by mouth daily Active lisinopriL (PRINIVIL,ZESTR [place]) 40 mg tablet Take 1 tablet (40 mg total) by mouth every morning Active Active Problems Problem Noted Date Diagnosed Date Thyroid cancer 09/24/2023 Social History Tobacco Use Types Packs/Day Years Used Date Smoking Tobacco: Never Smokeless Tobacco: Never Tobacco Cessation:Counseling Given: Not Answered AUDIT-C Answer Date Recorded Q1: How often do you have a drink containing alcohol? 4 or more times a week 09/24/2023 Average Number of Drinks Not on file 023 Frequency of Binge Drinking Not on file 09/06 Personal Safety Answer Date Recorded Getting School Help Needed Not on file 12/30 Comments Unknown Sex and Gender Information Value Date Recorded Sex Assigned at Not on file Legal Sex Female 2:53 AM SCRAP SEPARATOR Gender Identity Not on file Sexual Orientation Not on file Last Filed Vital Signs Vital Sign Reading Time Taken Comments Blood Pressure 171/76 09/24/2023 2:05 PM SCRAP SEPARATOR Pulse 77 09/24/2023 2:05 PM SCRAP SEPARATOR Temperature - - Respiratory Rate - - Oxygen Saturation 98% 09/24/2023 2:05 PM SCRAP SEPARATOR Inhaled Oxygen Concentration - - Weight 98.8 kg (217 lb 12.8 oz) 09/24/2023 2:05 PM SCRAP SEPARATOR Height - - Body Mass Index - - Plan of Treatment Not on file Insurance [facility] Address: [facility] [id number] [place] [phone] [facility] MED[facility] Care Teams Clothing Man Relationship Specialty Start Date End Date Enrrique Wills MD [address] [facility] [address] [place], [place] [id number] PCP - General Internal Medicine 09/24/23 Jame Heard MD Consulting Physician Internal Medicine 09/11/23 Lyndsey Mendez MD Radiation Oncologist Radiation Oncology 09/11/23
--- OUTSIDE RECORDS SUMMARY | 2025-03-24 13:37 | XMS_ITS | Clinical Summary ---
Author Organization [facility] Medical Office Building 2 Address [address] [place] [address] Care Team Providers Care Personnel Placement Specialist Name Role Phone Jame Heard MD Unavailable [phone] Lyndsey Mendez MD Unavailable [phone] Enrrique Wills MD Primary Care Provider [phone] Allergies No known active allergies Medications amLODIPine [...] Noted Date Diagnosed Date Thyroid cancer 09/24/2023 Surgical History Surgery Date Site/Laterality Comments TONSILLECTOMY HYSTERECTOMY 11/05/1996 - 11/04/1997 THYROIDECTOMY 11/05/2013 - 11/04/2014 BREAST LUMPECTOMY 11/05/2020 - 11/04/2021 Left Medical History Medical History Date Comments Thyroid disease Hypertension Breast cancer (HCC) Family History Medical History Relation Name Comments Pancreatic cancer Father Non-Hodgkin's Lymphoma Mother Kidney cancer Mother's Brother Stomach cancer Paternal Grandfather Breast cancer Paternal Grandmother Relation Name Status Comments Father Mother Mother's Brother Paternal Grandfather Paternal Grandmother Social History Tobacco Use Types Packs/Day Years [...] on file Legal Sex Female 2:53 AM LAND MANAGEMENT SUPERVISOR Gender Identity Not on file Sexual Orientation Not on file Obstetrics History Last Filed Vital Signs Vital Sign Reading Time Taken Comments Blood Pressure 171/76 09/24/2023 2:05 PM LAND MANAGEMENT SUPERVISOR Pulse 77 09/24/2023 2:05 PM LAND MANAGEMENT SUPERVISOR Temperature - - Respiratory Rate - - Oxygen Saturation 98% 09/24/2023 2:05 PM LAND MANAGEMENT SUPERVISOR Inhaled Oxygen Concentration - - Weight 98.8 kg (217 lb 12.8 oz) 09/24/2023 2:05 PM LAND MANAGEMENT SUPERVISOR Height - - Body Mass Index - - Plan of Treatment Health Maintenance Due Date Last Done Comments Depression Screening 1946 Fall Risk Assessment 1945 Hepatitis C Screening 1945 Osteoporosis Screening-Bone Density Scan 1945 DTaP/Tdap/Td Vaccine (1 - Tdap) 1957 Hepatitis B Screening 1964 Pneumococcal vaccine 65+ (1 of 2 - PCV) 1965 Well Visit 65+ 2011 Covid-19 Vaccine (3 - Modern a risk series) 02/22/2021 01/25/2021, 12/16/2020 Zoster Vaccine (2 of 2) 08/21/2022 06/26/2022 Influenza Vaccine (#1) 2024 2, 08/10/2021, 08/18/2018, Additional history exists Insurance [employer] MEDICARE [employer] MEDICARE Care Teams Personnel Placement Specialist Relationship Specialty Start Date End Date Enrrique Wills MD [address] [facility] [address] [place] [address] PCP - General Internal Medicine 09/24/23 Jame Heard MD Consulting Physician Internal Medicine 09/11/23 Lyndsey Mendez MD Radiation Oncologist Radiation Oncology 09/11/23
[2025-03-24 13:43] LABS: Basophils Absolute Auto 0.1 K/mm3 (0.0-0.1); Basophils Percent Auto 0.7 % (0.2-1.2); Eosinophils Absolute Auto 0.2 K/mm3 (0-0.3); Eosinophils Percent Auto 2.5 % (0-4.4); Hematocrit 39.9 % (37.0-47.0); Immature Granulocyte Absolute 0.02 K/mm3 (0.00-0.031); Immature Granulocyte Percent A 0.3 % (0-0.5); Lymphocytes Absolute Auto 1.68 K/mm3 (0.9-3.2); Lymphocytes Percent Auto 24.3 % (18.3-44.2); Mean Corpuscular HGB Conc 32.6 g/dl (32-36); Mean Corpuscular Hemoglobin 31.3 pg (26-34); Mean Corpuscular Volume 95.9 fl (80-100); Mean Platelet Volume 8.8 fl (7.4-10.4); Monocytes Absolute Auto 0.6 K/mm3 (0.1-0.6); Neutrophils Absolute Auto 4.4 K/mm3 (1.3-6.7); Neutrophils Percent Auto 63.2 % (45.5-73.1); Platelet Count Result 226 k/mm3 (150-375); Red Blood Count 4.16 M/mm3 (4.2-5.4); Red Cell Distribution Width 12.8 % (11.5-14.5); White Blood Count 6.9 K/mm3 (4.5-10.0)
[2025-03-24 13:46] LABS: Blood Urea Nitrogen 13 mg/dL (8-26); Carbon Dioxide 24 mmol/L (22-30); Chloride 104 mmol/L (98-109); Estimated Glomerular Filt Rate 43; Glucose 114 mg/dL (70-105); Ionized Calcium (POC) 1.25 mmol/L (1.11-1.31); Potassium 4.3 mmol/L (3.5-4.9); Sodium 139 mmol/L (138-146)
[2025-03-24 16:29] LABS: Alanine Aminotransferase 23 U/L (6-35); Albumin Level 4.5 g/dL (3.5-5.1); Alkaline Phosphatase 85 U/L (38-126); Anion Gap 8 mmol/L (4-12); Aspartate Amino Transferase 41 U/L (14-36); Bilirubin,Total 0.9 mg/dL (0.2-1.3); Blood Urea Nitrogen 14 mg/dL (7-17); Calcium 9.9 mg/dL (8.4-10.2); Carbon Dioxide 25 mmol/L (22-30); Chloride 104 mmol/L (98-107); Estimated Glomerular Filt Rate 59; Glucose 113 mg/dL (65-110); Potassium 4.4 mmol/L (3.4-5.0); Sodium 137 mmol/L (137-145)
== END 2025-03-24 13:33 | disposition home or self-care (01) ==
LOC: ANHLAB 13:32
PROVIDERS: PCP Internal Medicine; Visit Provider Internal Medicine Hematology & Oncology
DX: D05.12 Intraductal carcinoma in situ of left breast (principal)
CPT/HCPCS: 36415; 80047; 80053; 85025